=== PATIENT | male | born 1955 | race Caucasian/White ===

== ENCOUNTER → 2016-10-24 | Day surgery (SDC) | payer OTHER ==
[~2016-10-24] MED LIST: BUPIVACAINE HCL PF 0.75% 30 ML VIAL ONE; EPINEPHrine HCL (1:1000) 30 MG/30 ML VIAL ONE; LACTATED RINGER'S 1000 ML INJ 1,000 ML ONE; LIDOCAINE 1.5%/EPINEPHrine 1:200,000 PF SOLN 30 ML AMP ONE; MIDAZOLAM HCL 2 MG/2 ML VIAL ONE; MIDAZOLAM HCL 5 MG/ML VIAL (1 ML) ONE; ONDANSETRON HCL 4 MG/2 ML VIAL IV PUSH ONE; PROPOFOL 500 MG/50 ML BTL IV ONE; ceFAZolin 2 GM PREMIX 50 ML ONE
--- NOTE | 2016-10-24 20:20 | MP ---
cc: ALEKSANDERLISA DATE OF SURGERY 10/24/16 PREOPERATIVE DIAGNOSIS Left shoulder very large rotator cuff tear with biceps tendon severe tendinosis and partial rupture and impingement syndrome. PROCEDURE 1. Left shoulder arthroscopic rotator cuff repair 2. Left shoulder arthroscopic long head biceps tenodesis 3. Left shoulder arthroscopic subacromial decompression. ANESTHESIA Interscalene block and general SURGEON Jah Lai MD HEAD OF STORE OPERATIONS SURGEON JAKUB Irizarry ESTIMATED BLOOD LOSS Minimum DRAINS None. SPECIMEN None. COMPLICATIONS None known. INDICATION Lisa Quintanilla is a 61-year-old male with a severe debilitating left shoulder very large rotator cuff tear with pain and weakness including pain coming down the anterior aspect of the shoulder. MRI scan shows significant abnormality. He now presents for arthroscopic surgery. The risk and benefits have thoroughly been reviewed. All of his questions have been answered. A detailed informed consent has been obtained. surgeon's assistant, Nacho Swan, is an advanced registered nurse practitioner and his skill set is medically necessary for the performance of the operation. PROCEDURE IN DETAIL The patient is given interscalene block in the preop holding area. He was brought to the operating room and placed under general anesthetic. The patient was placed in the lateral decubitus position with axillary roll in place. The left shoulder is prepped and draped in usual sterile fashion. IV antibiotics were given. Time-out was completed. Bony landmarks were drawn out about the shoulder. We used a three portal technique, posteriorly in the soft spot, laterally at the junction of the anterior middle third of the acromion and accessory anterior portal. A blunt trocar was used to introduce the cannula. The very large rotator cuff tear was noted with the rotator cuff pulled back to the level of the labrum involving the supraspinous. The articular surfaces showed minimal wear. There was some mild fraying of the posterior labrum, some mild fraying centrally within the glenoid, fraying along the superior labrum and along the biceps tendon. We proceeded to clean up the joint from within and obtained hemostasis with the use of electrocautery. The marked amount of retraction of the cuff tear led us to proceed with testing mobility for this position. The mobility of the cuff was significantly limited and, therefore, we proceeded with a capsular release and this significantly improved the mobilization. We proceeded to debride unstable fibers of the biceps tendon and found this to be a greater than 50% torn and, therefore, decision was made to perform a tenodesis. We came into the subacromial space and performed bursectomy, made our anterior accessory portal and debrided the bicipital groove. We then proceeded with placement of #2 FiberWire whip stitch in the biceps tendon and then released it from the superior labrum and then used the interference screw with the special screwdriver after drilling an 8 mm tunnel to tenodese the biceps at the superior aspect of the bicipital groove. We then assessed the tear and this seemed to be somewhat of a reverse L configuration of a tear and we had already performed the release of the capsular level and now we assessed and we did a partial interval slide posteriorly and then did a [id number] repair of the infraspinatus to the supraspinous. There was two inferior and superior leaflets of the infraspinatus. We then passed the biceps tenodesis sutures through the anterior leaflet and then passed several more sutures that were then used for a biocomposite anchor laterally. We had prepared the bone of the footprint of the supraspinous so that we had good solid tissue on a good bleeding bone. Then similarly we placed several more sutures in a horizontal mattress fashion and then placed our next suture and then placed our suture anchor and then additional sutures were placed and a third suture anchor placed. The overall stability was very good. We identified the anterior acromial spur and performed anterior acromionectomy. I took the shoulder through internal and external rotation. We had good mobilization and we had good hemostasis. We had performed our acromionectomy removing approximately 4 mm of bone in the anterior surface of the acromion. We then proceeded to remove the arthroscopic equipment, closed with absorbable suture. Steri-Strips on the skin. Sterile dressing applied. The patient was awaken and returned to the recovery room in stable condition. MD REBECCA Floyd/ /7:01 PM /8:08 PM
== END | disposition home or self-care (01) ==
LOC: ESDC 06:12
PROVIDERS: ATTEND Orthopaedic Surgery Sports Medicine
DX: M75.122 Complete rotator cuff tear or rupture of left shoulder, not specified as traumatic (principal); M75.42 Impingement syndrome of left shoulder; M75.22 Bicipital tendinitis, left shoulder
CPT/HCPCS: 01630; 01716; 01991; 29826; 29827; 29828; 64417; C1713; J0171; J0690; J2250; J2405; J7120

== ENCOUNTER 2016-12-16 15:09 | Emergency (ER) | payer OTHER ==
[~2016-12-16] VITALS: Ht 182.9 cm; Wt 109.7 kg
[2016-12-16] MEDS ORDERED: IOHEXOL 350 MG/ML 10 ML VIAL (for RAD DIAG) IVCONTRAST ONE (15:10)
[2016-12-16 15:16] VITALS: BP 169/103; PULSE 102; RESP 18; TEMP 98.7; O2SAT 99
[2016-12-16] MEDS ORDERED: LOSA100T PO (15:29)
[2016-12-16] MEDS ORDERED: AMLO5 PO (15:29)
[2016-12-16] MEDS ORDERED: SODIUM CHLORIDE 0.9% FLUSH 10 ML FLUSH IVF PRN (15:30)
--- NOTE | 2016-12-16 15:31 | PD ---
HPI Chief Complaint: Pain: Acute or Chronic Time Seen by Provider: 15:28 Travel History International Travel<30 days: No Contact w/Intl Traveler<30days: No Traveled to known affect area: No History of Present Illness HPI 61-year-old male patient with history of hypertension, had a rotator cuff surgery on the left side done a few weeks ago, slipped and fell in the shower last week on Friday and the next day started having anterior left chest wall pain that hurts with palpation. He states is currently a 5 out of 10. He denies any shortness of breath, coughing, fevers, or any other symptoms. He went in to [place] urgent care today and was sent in for PE evaluation. He denies any recent long trips, denies any leg swelling or leg pain. Modifying Factors: None Associated Signs & Symptoms: Left-sided chest wall pain after a slip and fall Risk Factors: None PFSH Social History Tobacco Use: No Allergies-Medications (Allergen,Severity, Reaction): Coded Allergies: No Known Allergies (Unverified , 12/16/16) Reported Meds & Prescriptions Reported Meds & Active Scripts Active Reported Norvasc (Amlodipine Besylate) 5 Mg Tab Unknown Dose PO DAILY Losartan (Losartan Potassium) 100 Mg Tab 100 Mg PO DAILY Review of Systems Except as stated in HPI: all other systems reviewed are Neg Physical Exam Narrative GENERAL: Well-developed elderly white male patient currently in mild distress. Awake and oriented 3. SKIN: Focused skin assessment warm/dry. HEAD: Atraumatic. Normocephalic. EYES: Pupils equal and round. No scleral icterus. No injection or drainage. ENT: No nasal bleeding or discharge. Mucous membranes pink and moist. NECK: Trachea midline. No JVD. CARDIOVASCULAR: Regular rate and rhythm. No murmur appreciated. RESPIRATORY: No accessory muscle use. Clear to auscultation. Breath sounds equal bilaterally. CHEST: Tender to palpation of the left anterior chest wall at around the midclavicular line of the second and third rib without deformity or crepitance. No retractions or use of accessory muscles. GASTROINTESTINAL: Abdomen soft, non-tender, nondistended. Hepatic and splenic margins not palpable. MUSCULOSKELETAL: No obvious deformities. No clubbing. No cyanosis. No edema. NEUROLOGICAL: Awake and alert. No obvious cranial nerve deficits. Motor grossly within normal limits. Normal speech. PSYCHIATRIC: Appropriate mood and affect; insight and judgment normal. Data Data Last Documented VS Vital Signs Date Time Temp Pulse Resp B/P (MAP) Pulse Ox O2 Delivery O2 Flow Rate FiO2 12/16/16 16:31 90 18 163/92 (115) 98 Room Air 12/16/16 15:16 98.7 Orders Orders Electrocardiogram (12/16/16 15:28) Ckmb (Isoenzyme) Profile (12/16/16 15:28) Complete Blood Count With Diff (12/16/16 15:28) Comprehensive Metabolic Panel (12/16/16 15:28) D-Dimer (12/16/16 15:28) Magnesium (Mg) (12/16/16 15:28) Prothrombin Time / Inr (Pt) (12/16/16:28) Act Partial Throm Time (Ptt) (12/16/16 15:28) Troponin I (12/16/16 15:28) Ecg Monitoring (12/16/16 15:28) Bilateral Bp Monitoring (12/16/16:28) Iv Access Insert/Monitor (12/16/16 15:28) Oximetry (12/16/16 15:28) Oxygen Administration (12/16/16 15:28) Sodium Chloride 0.9% Flush (Ns Flush) (12/16/16 15:30) CKMB (12/16/16 15:45) CKMB% (12/16/16 15:45) Ct Pulmonary Angiogram (12/16/16 16:43) Iohexol 350 Inj (Omnipaque 350 Inj) (12/16/16 15:10) Labs Laboratory Tests Test 12/16/16 15:45 White Blood Count 5.5 TH/MM3 Red Blood Count 4.76 MIL/MM3 Hemoglobin 15.2 GM/DL Hematocrit 47.0 % Mean Corpuscular Volume 98.7 FL Mean Corpuscular Hemoglobin 32.0 PG Mean Corpuscular Hemoglobin Concent 32.4 % Red Cell Distribution Width 12.6 % Platelet Count 185 TH/MM3 Mean Platelet Volume 7.1 FL Neutrophils (%) (Auto) 69.5 % Lymphocytes (%) (Auto) 17.3 % Monocytes (%) (Auto) 11.0 % Eosinophils (%) (Auto) 1.6 % Basophils (%) (Auto) 0.6 % Neutrophils # (Auto) 3.8 TH/MM3 Lymphocytes # (Auto) 1.0 TH/MM3 Monocytes # (Auto) 0.6 TH/MM3 Eosinophils # (Auto) 0.1 TH/MM3 Basophils # (Auto) 0.0 TH/MM3 CBC Comment DIFF FINAL Differential Comment Prothrombin Time 10.3 SEC Prothromb Time International Ratio 0.9 RATIO Activated Partial Thromboplast Time 24.5 SEC D-Dimer Quantitative (PE/DVT) 5.90 MG/L FEU Blood Urea Nitrogen 12 MG/DL Creatinine 0.70 MG/DL Random Glucose 123 MG/DL Total Protein 8.0 GM/DL Albumin 3.9 GM/DL Calcium Level 8.9 MG/DL Magnesium Level 1.6 MG/DL Alkaline Phosphatase 67 U/L Aspartate Amino Transf (AST/SGOT) 61 U/L Alanine Aminotransferase (ALT/SGPT) 65 U/L Total Bilirubin 1.2 MG/DL Sodium Level 136 MEQ/L Potassium Level 3.3 MEQ/L Chloride Level 96 MEQ/L Carbon Dioxide Level 29.1 MEQ/L Anion Gap 11 MEQ/L Estimat Glomerular Filtration Rate 115 ML/MIN Total Creatine Kinase 142 U/L Creatine Kinase MB 1.0 NG/ML Troponin I LESS THAN 0.02 NG/ML MDM Medical Decision Making Medical Screen Exam Complete: Yes Emergency Medical Condition: Yes Medical Record Reviewed: Yes Interpretation(s) EKG shows NSR, no ST elevation or depression, and no arrhythmias. No significant T-wave inversions. Laboratory Tests Test 12/16/16 15:45 Monocytes (%) (Auto) 11.0 % (0.0-8.0) D-Dimer Quantitative (PE/DVT) 5.90 MG/L FEU (0.00-0.50) Random Glucose 123 MG/DL (74-106) Aspartate Amino Transf (AST/SGOT) 61 U/L (15-37) Total Bilirubin 1.2 MG/DL (0.2-1.0) Potassium Level 3.3 MEQ/L (3.5-5.1) Chloride Level 96 MEQ/L (98-107) Troponin I LESS THAN 0.02 NG/ML Differential Diagnosis Anterior chest wall pains: costochondritis versus contusion versus pneumonia versus pneumothorax versus PE Narrative Course Chest x-ray images were obtained at urgent care and it was negative for any obvious signs of acute pulmonary processes such as pneumothorax. Lab work and EKG done in the ER was unremarkable except for very elevated d-dimer. CTA did not show any signs of PE. At this point, I suspect that the symptoms are secondary to a chest wall contusion rather than other acute processes. My plan would be to release him with symptomatic relief or pain and follow-up to primary care doctor. Return for worsening in symptoms as needed. The plan has been discussed with him and he states understanding. Diagnosis Primary Impression: Chest wall contusion Med/Other Pt SpecificInfo: Prescription(s) given Scripts Tramadol-Acetaminophen (Tramadol-Acetaminophen) 37.5-325 mg Tab 1 TAB PO Q6H Y for PAIN, #15 TAB 0 Refills Prov: Lang Carver MD 12/16/16 Disposition: 01 DISCHARGE HOME Condition: Stable Lang Carver MD Dec 16, 2016 15:31
[2016-12-16 15:52] VITALS: RESP 18; O2SAT 99
[2016-12-16 15:54] LABS: AUTOMATED NEUTROPHIL # 3.8 TH/MM3 (1.8-7.7); BASOPHIL % 0.6 % (0.0-2.0); EOSINOPHIL # 0.1 TH/MM3 (0-0.4); EOSINOPHIL % 1.6 % (0.0-4.0); HEMO FLAGS DIFF FINAL; LYMPH % 17.3 % (9.0-44.0); MEAN CELL VOLUME 98.7 FL (80.0-100.0); MEAN CORPUSCULAR HGB CONC 32.4 % (32.0-36.0); NEUT % 69.5 % (16.0-70.0); PLATELET COUNT 185 TH/MM3 (150-450); RED BLOOD COUNT 4.76 MIL/MM3 (4.50-5.90); RED CELL DISTRIBUTION WIDTH 12.6 % (11.6-17.2); WHITE BLOOD COUNT 5.5 TH/MM3 (4.0-11.0)
[2016-12-16 16:07] LABS: CHLORIDE 96 MEQ/L (98-107); POTASSIUM 3.3 MEQ/L (3.5-5.1); SODIUM (NA) 136 MEQ/L (136-145)
[2016-12-16 16:11] LABS: ANION GAP 11 MEQ/L (5-15); BICARBONATE 29.1 MEQ/L (21.0-32.0); BLOOD UREA NITROGEN 12 MG/DL (7-18); MAGNESIUM 1.6 MG/DL (1.5-2.5)
[2016-12-16 16:13] LABS: ALT (GPT) 65 U/L (12-78)
[2016-12-16 16:14] LABS: AST (GOT) 61 U/L (15-37); GLOMERULAR FILTRATION RATE 115 ML/MIN (>89)
[2016-12-16 16:15] LABS: TOTAL BILIRUBIN ADULT 1.2 MG/DL (0.2-1.0)
[2016-12-16 16:16] LABS: ALKALINE PHOSPHATASE 67 U/L (45-117); CREATINE KINASE 142 U/L (39-308)
[2016-12-16 16:27] LABS: APTT (PATIENT) 24.5 SEC (24.3-30.1); INTERNATIONAL NORMALIZED RATIO 0.9 RATIO; PROTHROMBIN TIME - PATIENT 10.3 SEC (9.8-11.6)
[2016-12-16 16:31] VITALS: BP 163/92; PULSE 90; RESP 18; O2SAT 98
--- NOTE | 2016-12-16 17:43 | RADRPT ---
EXAM DATE/TIME: 12/16/2016 17:25 [facility] COMPARISON: No previous studies available for comparison. INDICATIONS : Left sided chest pain for two days. IV CONTRAST: 71 cc Omnipaque 350 (iohexol) IV RADIATION DOSE: 21.69 CTDIvol (mGy) ; Patient body habitus MEDICAL HISTORY : Hypertension. SURGICAL HISTORY : left rotator cuff surgery ENCOUNTER: Initial ACUITY: 2 days PAIN SCALE: 5/10 LOCATION: Left chest TECHNIQUE: Volumetric scanning of the chest was performed using a pulmonary embolism protocol MIP images were re constructed. Using automated exposure control and adjustment of the mA and/or kV according to patien t size, radiation dose was kept as low as reasonably achievable to obtain optimal diagnostic quality images. DICOM format image data is available electronically for review and comparison. Follow-up recommendations for detected pulmonary nodules are based at a minimum on nodule size and pa tient risk factors according to Fleischner Society Guidelines. FINDINGS: LUNGS: The lungs are clear. There is no pleural effusion. MEDIASTINUM: There is good visualization of the great vessels of the middle mediastinum. No evidence of mediastin al or hilar adenopathy/mass. There is no pericardial effusion. AXILLA: There is no axillary adenopathy MUSCULOSKELETAL: Moderate degenerative changes are present in the thoracic spine. MISCELLANEOUS: There is marked fatty replacement to the liver. CONCLUSION: Negative for central pulmonary emboli. Florencio Singleton MD FACR on December 16, 2016 at 17:39 Board Certified Radiologist. This report was verified electronically.
[2016-12-16] MEDS ORDERED: TRAM-388 PO (17:49)
[2016-12-16 17:50] VITALS: BP 151/91; PULSE 94; RESP 18; O2SAT 99
--- NOTE | 2016-12-17 13:50 | EKG ---
Date Performed: 12/16/2016 Time Performed: 15:37:26 PTAGE: 61 years EKG: Sinus rhythm NORMAL ECG Compared to prior tracing no significant change PREVIOUS TRACING : 06/12/2004 16.06 DOCTOR: Chepe Palumbo Interpretating Date/Time 12/17/2016 13:47:15
== END 2016-12-16 17:59 | disposition home or self-care (01) ==
LOC: PHED 15:09
DX: S20.212A Contusion of left front wall of thorax, initial encounter (principal); I10 Essential (primary) hypertension; Z98.890 Other specified postprocedural states; Z79.899 Other long term (current) drug therapy; W18.2XXA Fall in (into) shower or empty bathtub, initial encounter
CPT/HCPCS: 71275; 80053; 82550; 82552; 83735; 84484; 85025; 85379; 85610; 85730; 93005; 99285; Q9967

== ENCOUNTER 2016-12-25 16:17 | Inpatient (IN) | payer OTHER, MEDICARE ==
[~2016-12-25] VITALS: Ht 182.9 cm; Wt 113.0 kg
[~2016-12-25 16:17] MED LIST changes: +AMLO5 PO; -BUPIVACAINE HCL PF 0.75% 30 ML VIAL ONE; -EPINEPHrine HCL (1:1000) 30 MG/30 ML VIAL ONE; -LACTATED RINGER'S 1000 ML INJ 1,000 ML ONE; -LIDOCAINE 1.5%/EPINEPHrine 1:200,000 PF SOLN 30 ML AMP ONE; +LOSA100T PO; -MIDAZOLAM HCL 2 MG/2 ML VIAL ONE; -MIDAZOLAM HCL 5 MG/ML VIAL (1 ML) ONE; -ONDANSETRON HCL 4 MG/2 ML VIAL IV PUSH ONE; -PROPOFOL 500 MG/50 ML BTL IV ONE; +TRAM-388 PO; -ceFAZolin 2 GM PREMIX 50 ML ONE
[2016-12-25] MEDS ORDERED: IOHEXOL 350 MG/ML 10 ML VIAL (for RAD DIAG) IVCONTRAST ONE (16:18)
[2016-12-25 16:21] VITALS: BP 132/85; PULSE 94; RESP 24; TEMP 98.6; O2SAT 97
[2016-12-25] MEDS ORDERED: SODIUM CHLORIDE 0.9% FLUSH 10 ML FLUSH IVF PRN (16:45)
[2016-12-25] MEDS ORDERED: SODIUM CHLOR 0.9% 1000 ML INJ 1,000 ML IV ONE (16:45)
--- NOTE | 2016-12-25 16:47 | PD ---
HPI Chief Complaint: Exposure to Blood/Body Fluids Time Seen by Provider: 16:40 Travel History International Travel<30 days: No Contact w/Intl Traveler<30days: No Traveled to known affect area: No History of Present Illness HPI 61-year-old male with history of hypertension, presents to the emergency department for evaluation following a near syncopal episode. Patient states that he was in his home when he started to smell something different. He went outside and continue to smell this. At that time he became diaphoretic and lightheaded. He felt like he was going to pass out. He states since that incident he "just feels awful." He feels weak and shaky. Denies any chest pain or tightness. He denies any shortness of breath. He felt nauseous but he did not vomit. Denies any other focal deficits or weakness. Patient states he has not had anything happen like this in the past. Of note, patient travels frequently, last flight being yesterday, from [place]. He does consume alcohol daily for many years. Per his daughter he has had "extreme alcoholic" and she feels as though his drinking has become less controlled as of late. Patient states he does have "a few drinks a day around happy hour." His last alcoholic beverage was last evening on his flight home. PFSH Past Medical History Hypertension: Yes Tetanus Vaccination: Unknown Past Surgical History Abdominal Surgery: Yes (HERNIA REPAIR) Social History Alcohol Use: Yes (daily) Tobacco Use: No Substance Use: No Allergies-Medications (Allergen,Severity, Reaction): Coded Allergies: No Known Allergies (Unverified , 12/25/16) Reported Meds & Prescriptions Reported Meds & Active Scripts Active Tramadol-Acetaminophen 37.5-325 mg Tab 1 Tab PO Q6H PRN Reported Norvasc (Amlodipine Besylate) 5 Mg Tab Unknown Dose PO DAILY Losartan (Losartan Potassium) 100 Mg Tab 100 Mg PO DAILY Review of Systems Except as stated in HPI: all other systems reviewed are Neg Physical Exam Narrative GENERAL: Well-nourished male patient, tremulous but without any obvious distress SKIN: Focused skin assessment warm/diaphoretic. HEAD: Atraumatic. Normocephalic. EYES: Pupils equal and round. No scleral icterus. No injection or drainage. ENT: No nasal bleeding or discharge. Mucous membranes pink and moist. NECK: Trachea midline. No JVD. CARDIOVASCULAR: Tachycardic rate and rhythm. No murmur appreciated. RESPIRATORY: No accessory muscle use. Clear to auscultation. Breath sounds equal bilaterally. GASTROINTESTINAL: Abdomen soft, non-tender, nondistended. Hepatic and splenic margins not palpable. MUSCULOSKELETAL: No obvious deformities. No clubbing. No cyanosis. No edema. NEUROLOGICAL: Awake and alert. No obvious cranial nerve deficits. Motor grossly within normal limits. Normal speech. PSYCHIATRIC: Appropriate mood and affect; insight and judgment normal. Data Data Last Documented VS Vital Signs Date Time Temp Pulse Resp B/P (MAP) Pulse Ox O2 Delivery O2 Flow Rate FiO2 12/25/16 19:48 98 22 152/93 (112) 96 Nasal Cannula 12/25/16 16:51 98.7 Orders Orders Electrocardiogram (12/25/16 16:45) Basic Metabolic Panel (Bmp) (12/25/16 16:45) Complete Blood Count With Diff (12/25/16 16:45) Magnesium (Mg) (12/25/16 16:45) Ckmb (Isoenzyme) Profile (12/25/16 16:45) Troponin I (12/25/16 16:45) Act Partial Throm Time (Ptt) (12/25/16 16:45) Prothrombin Time / Inr (Pt) (12/25/16 16:45) Urinalysis - C+S If Indicated (12/25/16 16:45) Chest, Single Ap (12/25/16 16:45) Ecg Monitoring (12/25/16 16:45) Iv Access Insert/Monitor (12/25/16 16:45) Oximetry (12/25/16 16:45) Sodium Chloride 0.9% Flush (Ns Flush) (12/25/16 16:45) Sodium Chlor 0.9% 1000 Ml Inj (Ns 1000 M (12/25/16 16:45) Lorazepam Inj (Ativan Inj) (12/25/16 17:00) Ondansetron Inj (Zofran Inj) (12/25/16 17:30) CKMB (12/25/16 17:00) CKMB% (12/25/16 17:00) Ct Pulmonary Angiogram (12/25/16 ) Alcohol (Ethanol) (12/25/16 18:21) Prochlorperazine Inj (Compazine Inj) (12/25/16 18:30) Diphenhydramine Inj (Benadryl Inj) (12/25/16 18:30) Iohexol 350 Inj (Omnipaque 350 Inj) (12/25/16 16:18) Us Leg Venous Doppler Bilat (12/25/16 ) Enoxaparin Inj (Lovenox Inj) (12/25/16 19:15) Alcohol Withdrawal Asmt-Ciwa Q4HX18 (12/25/16 19:32) Flumazenil Inj (Romazicon Inj) (12/25/16 19:45) Lorazepam (Ativan) (12/25/16 19:45) Lorazepam Inj (Ativan Inj) (12/25/16 19:45) Lorazepam (Ativan) (12/25/16 19:45) Lorazepam Inj (Ativan Inj) (12/25/16 19:45) Lorazepam Inj (Ativan Inj) (12/25/16 19:45) Lorazepam Inj (Ativan Inj) (12/25/16 19:45) Labs Laboratory Tests Test 12/25/16 17:00 12/25/16 18:00 White Blood Count 7.5 TH/MM3 Red Blood Count 4.39 MIL/MM3 Hemoglobin 15.1 GM/DL Hematocrit 44.6 % Mean Corpuscular Volume 101.5 FL Mean Corpuscular Hemoglobin 34.4 PG Mean Corpuscular Hemoglobin Concent 33.9 % Red Cell Distribution Width 13.1 % Platelet Count 180 TH/MM3 Mean Platelet Volume 7.2 FL Neutrophils (%) (Auto) 82.0 % Lymphocytes (%) (Auto) 7.6 % Monocytes (%) (Auto) 9.6 % Eosinophils (%) (Auto) 0.3 % Basophils (%) (Auto) 0.5 % Neutrophils # (Auto) 6.1 TH/MM3 Lymphocytes # (Auto) 0.6 TH/MM3 Monocytes # (Auto) 0.7 TH/MM3 Eosinophils # (Auto) 0.0 TH/MM3 Basophils # (Auto) 0.0 TH/MM3 CBC Comment DIFF FINAL Differential Comment Prothrombin Time 10.7 SEC Prothromb Time International Ratio 1.0 RATIO Activated Partial Thromboplast Time 23.8 SEC Blood Urea Nitrogen 12 MG/DL Creatinine 0.73 MG/DL Random Glucose 192 MG/DL Calcium Level 8.3 MG/DL Magnesium Level 1.5 MG/DL Sodium Level 134 MEQ/L Potassium Level 3.3 MEQ/L Chloride Level 95 MEQ/L Carbon Dioxide Level 29.7 MEQ/L Anion Gap 9 MEQ/L Estimat Glomerular Filtration Rate 110 ML/MIN Total Creatine Kinase 120 U/L Creatine Kinase MB 1.2 NG/ML Troponin I LESS THAN 0.02 NG/ML Ethyl Alcohol Level LESS THAN 3 MG/DL Urine Color YELLOW Urine Turbidity CLEAR Urine pH 6.5 Urine Specific [place] 1.010 Urine Protein NEG mg/dL Urine Glucose (UA) 150 mg/dL Urine Ketones 10 mg/dL Urine Occult Blood NEG Urine Nitrite NEG Urine Bilirubin NEG Urine Urobilinogen LESS THAN 2.0 MG/DL Urine Leukocyte Esterase NEG Urine RBC 1 /hpf Urine WBC LESS THAN 1 /hpf Urine Bacteria RARE /hpf Microscopic Urinalysis Comment CULT NOT INDICATED MDM Medical Decision Making Medical Screen Exam Complete: Yes Emergency Medical Condition: Yes Medical Record Reviewed: Yes Differential Diagnosis The pain versus near syncope versus Electrolyte abnormality versus viral syndrome versus arrhythmia versus alcohol withdrawal Narrative Course 61-year-old male presents to emergency department for evaluation following a near syncopal episode. Patient appears without distress. He is diaphoretic with warm skin. States he does not feel well. He is without any respiratory distress. Lab work is initiated. EKGs reviewed by my attending physician without any acute ectopy, ST elevation or depression. My concern is that the patient is tremulous secondary to alcohol withdrawal with his last alcoholic beverage being yesterday. In addition to IV fluid, he is given Ativan IV. While lying in bed, patient's oxygen saturation continues to get decrease as low as 84% on room air. He is placed on oxygen and is able to maintain oxygen saturation greater than 95%. After oxygen saturations remained consistent, we attempted room air again. The patient maintained oxygen saturations >95% for a approximately 10 minutes then decreased again to 88% and was placed on 2LNC. I discussed the patient my attending physician Dr. Loyd and with the persistent tachycardia and inability to maintain oxygen saturations, we will movem forward with with CT pulmonary angiogram. 1830 I spoke with the patient's daughter who is a nurse practitioner in [place]. She again verbalizes concern about her father's alcoholism and how it may be contributing to his current symptoms. Laboratory Tests Test 12/25/16 17:00 12/25/16 18:00 White Blood Count 7.5 TH/MM3 Red Blood Count 4.39 MIL/MM3 Hemoglobin 15.1 GM/DL Hematocrit 44.6 % Mean Corpuscular Volume 101.5 FL Mean Corpuscular Hemoglobin 34.4 PG Mean Corpuscular Hemoglobin Concent 33.9 % Red Cell Distribution Width 13.1 % Platelet Count 180 TH/MM3 Mean Platelet Volume 7.2 FL Neutrophils (%) (Auto) 82.0 % Lymphocytes (%) (Auto) 7.6 % Monocytes (%) (Auto) 9.6 % Eosinophils (%) (Auto) 0.3 % Basophils (%) (Auto) 0.5 % Neutrophils # (Auto) 6.1 TH/MM3 Lymphocytes # (Auto) 0.6 TH/MM3 Monocytes # (Auto) 0.7 TH/MM3 Eosinophils # (Auto) 0.0 TH/MM3 Basophils # (Auto) 0.0 TH/MM3 CBC Comment DIFF FINAL Differential Comment Prothrombin Time 10.7 SEC Prothromb Time International Ratio 1.0 RATIO Activated Partial Thromboplast Time 23.8 SEC Blood Urea Nitrogen 12 MG/DL Creatinine 0.73 MG/DL Random Glucose 192 MG/DL Calcium Level 8.3 MG/DL Magnesium Level 1.5 MG/DL Sodium Level 134 MEQ/L Potassium Level 3.3 MEQ/L Chloride Level 95 MEQ/L Carbon Dioxide Level 29.7 MEQ/L Anion Gap 9 MEQ/L Estimat Glomerular Filtration Rate 110 ML/MIN Total Creatine Kinase 120 U/L Creatine Kinase MB 1.2 NG/ML Troponin I LESS THAN 0.02 NG/ML Ethyl Alcohol Level LESS THAN 3 MG/DL Urine Color YELLOW Urine Turbidity CLEAR Urine pH 6.5 Urine Specific [place] 1.010 Urine Protein NEG mg/dL Urine Glucose (UA) 150 mg/dL Urine Ketones 10 mg/dL Urine Occult Blood NEG Urine Nitrite NEG Urine Bilirubin NEG Urine Urobilinogen LESS THAN 2.0 MG/DL Urine Leukocyte Esterase NEG Urine RBC 1 /hpf Urine WBC LESS THAN 1 /hpf Urine Bacteria RARE /hpf Microscopic Urinalysis Comment CULT NOT INDICATED CBC is without acute concern. BMP is with mild hypokalemia 3.3. Glucose is 192. Troponin is less than 0.02. EtOH is less than 3. INR is 1.0. Urinalysis is that the 150 glucose, 10 ketones, rare bacteria. Culture is not indicated. Last Impressions Chest X-Ray 12/25/16 1645 Signed Impressions: Service Date/Time: Sunday, December 25, 2016 17:10 - CONCLUSION: No acute disease. Florencio Singleton MD FACR CT Angiography 12/25/16 0000 Signed Impressions: Service Date/Time: Sunday, December 25, 2016 18:34 - CONCLUSION: 1. Small right lower lobe pulmonary emboli. 2. Clear lungs. 3. Coronary artery calcification. 4. Fatty liver. Jaskaran Armstrong MD I discussed the findings of my attending physician who has also reviewed them. I have reviewed the findings with the patient and his family. I have discussed the risks of anticoagulation therapy. Patient and his family verbalize understanding. Patient will be given a dose of Lovenox here in the emergency department. Pt will be admitted observation for further evaluation fo his near syncope; ultrasound of the bilateral lower extremities has been ordered for possible source of patient's emboli. Pt's primary care provider is Dr. Carrizales Diagnosis Primary Impression: Near syncope Additional Impressions: Pulmonary emboli Qualified Codes: I26.99 - Other pulmonary embolism without acute cor pulmonale Alcohol dependence Qualified Codes: F10.29 - Alcohol dependence with unspecified alcohol-induced disorder Admitting Information Admitting Physician Requests: Admit Condition: Stable MembrenoPaula camejo JAKUB Dec 25, 2016 16:47
[2016-12-25 16:51] VITALS: BP 137/90; PULSE 107; RESP 19; TEMP 98.7; O2SAT 96
[2016-12-25] MEDS ORDERED: LORazepam 2 MG/ML VIAL IV PUSH ONE (17:00)
[2016-12-25 17:21] LABS: AUTOMATED NEUTROPHIL # 6.1 TH/MM3 (1.8-7.7); BASOPHIL % 0.5 % (0.0-2.0); EOSINOPHIL % 0.3 % (0.0-4.0); HEMATOCRIT 44.6 % (39.0-51.0); HEMO FLAGS DIFF FINAL; LYMPH % 7.6 % (9.0-44.0); LYMPHOCYTE # 0.6 TH/MM3 (1.0-4.8); MEAN CELL VOLUME 101.5 FL (80.0-100.0); MEAN CORPUSCULAR HEMOGLOBIN 34.4 PG (27.0-34.0); MEAN CORPUSCULAR HGB CONC 33.9 % (32.0-36.0); MONO % 9.6 % (0.0-8.0); PLATELET COUNT 180 TH/MM3 (150-450); RED BLOOD COUNT 4.39 MIL/MM3 (4.50-5.90); RED CELL DISTRIBUTION WIDTH 13.1 % (11.6-17.2); WHITE BLOOD COUNT 7.5 TH/MM3 (4.0-11.0)
--- NOTE | 2016-12-25 17:29 | RADRPT ---
EXAM DATE/TIME: 12/25/2016 17:10 [facility] COMPARISON: No previous studies available for comparison. INDICATIONS : Nausea and faint feeling after smelling a strange odor. MEDICAL HISTORY : Hypertension. SURGICAL HISTORY : Left rotator cuff surgery. ENCOUNTER: Initial ACUITY: 1 day PAIN SCORE: 0/10 LOCATION: Bilateral chest FINDINGS: A single view of the chest demonstrates the lungs to be symmetrically aerated without evidence of mas s, infiltrate or effusion. The cardiomediastinal contours are unremarkable. Osseous structures are intact. CONCLUSION: No acute disease. Florencio Singleton MD FACR on December 25, 2016 at 17:27 Board Certified Radiologist. This report was verified electronically.
[2016-12-25] MEDS ORDERED: ONDANSETRON HCL 4 MG/2 ML VIAL IV PUSH ONE (17:30)
[2016-12-25 17:31] LABS: APTT (PATIENT) 23.8 SEC (24.3-30.1); PROTHROMBIN TIME - PATIENT 10.7 SEC (9.8-11.6)
[2016-12-25 17:54] LABS: ANION GAP 9 MEQ/L (5-15); BICARBONATE 29.7 MEQ/L (21.0-32.0); BLOOD UREA NITROGEN 12 MG/DL (7-18); CHLORIDE 95 MEQ/L (98-107); GLOMERULAR FILTRATION RATE 110 ML/MIN (>89); MAGNESIUM 1.5 MG/DL (1.5-2.5); POTASSIUM 3.3 MEQ/L (3.5-5.1); SODIUM (NA) 134 MEQ/L (136-145)
[2016-12-25 17:56] LABS: CREATINE KINASE 120 U/L (39-308)
[2016-12-25 18:08] LABS: CKMB 1.2 NG/ML (0.5-3.6)
[2016-12-25 18:23] LABS: BACTERIA, URINE RARE /hpf; BLOOD, URINE NEG (NEG); COMMENT (UR) CULT NOT INDICATED; CULTURE IF INDICATED CULT NOT INDICATED; GLUCOSE,URINE 150 mg/dL (NEG); KETONE, URINE 10 mg/dL (NEG); NITRITE,URINE NEG (NEG); PH, URINE 6.5 (5.0-8.5); URINE COLOR YELLOW (YELLW/STRAW)
[2016-12-25] MEDS ORDERED: diphenhydrAMINE HCL 50 MG/ML VIAL IV PUSH ONE (18:30)
[2016-12-25] MEDS ORDERED: PROCHLORPERAZINE INJ 10 MG/2 ML VIAL IV PUSH ONE (18:30)
--- NOTE | 2016-12-25 18:59 | RADRPT ---
EXAM DATE/TIME: 12/25/2016 18:34 [facility] COMPARISON: CT PULMONARY ANGIOGRAM, December 16, 2016, 17:25. INDICATIONS : Short of breath. IV CONTRAST: 75 cc Omnipaque 350 (iohexol) IV RADIATION DOSE: 23.21 CTDIvol (mGy) MEDICAL HISTORY : Hypertension. SURGICAL HISTORY : hernia repair ENCOUNTER: Initial ACUITY: 1 day PAIN SCALE: 3/10 LOCATION: chest TECHNIQUE: Volumetric scanning of the chest was performed using a pulmonary embolism protocol MIP images were re constructed. Using automated exposure control and adjustment of the mA and/or kV according to patien t size, radiation dose was kept as low as reasonably achievable to obtain optimal diagnostic quality images. DICOM format image data is available electronically for review and comparison. Follow-up recommendations for detected pulmonary nodules are based at a minimum on nodule size and pa tient risk factors according to Fleischner Society Guidelines. FINDINGS: PULMONARY ARTERIES: Several small, scattered pulmonary emboli are seen in the right lower lobe. No large or other pulmona ry embolus is seen. LUNGS: There is no consolidation or pneumothorax . No concerning pulmonary nodule is visualized. PLEURAE: There is no pleural thickening or pleural effusion. MEDIASTINUM: There is good visualization of the great vessels of the middle mediastinum. No evidence of mediastin al or hilar adenopathy/mass. Heart size normal. There is a right and left-sided coronary artery calci fication. MUSCULOSKELETAL: Within normal limits for patient age. MISCELLANEOUS: Severe fatty infiltration noted of the liver. CONCLUSION: 1. Small right lower lobe pulmonary emboli. 2. Clear lungs. 3. Coronary artery calcification. 4. Fatty liver. Jaskaran Armstrong MD on December 25, 2016 at 18:55 Board Certified Radiologist. This report was verified electronically.
[2016-12-25] MEDS ORDERED: ENOXAPARIN SODIUM 120 MG/0.8 ML SYRINGE SQ ONE (19:15)
[2016-12-25] MEDS ORDERED: LORazepam 2 MG/ML VIAL IV PUSH PRN ×4 (19:45→21:30)
[2016-12-25] MEDS ORDERED: LORazepam 1 MG TAB PO PRN (19:45)
[2016-12-25] MEDS ORDERED: FLUMAZENIL 0.5 MG/5 ML VIAL IV PUSH PRN (19:45)
[2016-12-25] MEDS ORDERED: LORazepam 2 MG TAB PO PRN (19:45)
--- NOTE | 2016-12-25 19:47 | PD ---
Physical Exam Narrative I, Dr. Loyd, have reviewed the advance practice practitioner's documentation and am in agreement, met with the patient face to face, made the diagnosis, and the medical decision making was done by me. *My assessment and Findings: Near syncope vs. arrhythmia vs. dehydration 61yo M with HTN here with episode of lightheaded today after smelling something. States he did not pass out but was diaphoretic. Denies any chest pain or sob. However, pt was found to be hypoxic in the 80s on room air and does not use oxygen at home. Pt does have recent traveling. Saturating at 98% on 2L NC. Labs reviewed, no leukocytosis. K: 3.3, pt tolerating PO. Troponin negative. CT angio showed small right lower lobe PE. Pt given lovenox. Will admit for syncope work up and new onset PE. Data Data Last Documented VS Vital Signs Date Time Temp Pulse Resp B/P (MAP) Pulse Ox O2 Delivery O2 Flow Rate FiO2 12/25/16 19:48 98 22 152/93 (112) 96 Nasal Cannula 12/25/16 16:51 98.7 Orders Orders Electrocardiogram (12/25/16 16:45) Basic Metabolic Panel (Bmp) (12/25/16 16:45) Complete Blood Count With Diff (12/25/16 16:45) Magnesium (Mg) (12/25/16 16:45) Ckmb (Isoenzyme) Profile (12/25/16 16:45) Troponin I (12/25/16 16:45) Act Partial Throm Time (Ptt) (12/25/16 16:45) Prothrombin Time / Inr (Pt) (12/25/16 16:45) Urinalysis - C+S If Indicated (12/25/16 16:45) Chest, Single Ap (12/25/16 16:45) Ecg Monitoring (12/25/16 16:45) Iv Access Insert/Monitor (12/25/16 16:45) Oximetry (12/25/16 16:45) Sodium Chloride 0.9% Flush (Ns Flush) (12/25/16 16:45) Sodium Chlor 0.9% 1000 Ml Inj (Ns 1000 M (12/25/16 16:45) Lorazepam Inj (Ativan Inj) (12/25/16 17:00) Ondansetron Inj (Zofran Inj) (12/25/16 17:30) CKMB (12/25/16 17:00) CKMB% (12/25/16 17:00) Ct Pulmonary Angiogram (12/25/16 ) Alcohol (Ethanol) (12/25/16 18:21) Prochlorperazine Inj (Compazine Inj) (12/25/16 18:30) Diphenhydramine Inj (Benadryl Inj) (12/25/16 18:30) Iohexol 350 Inj (Omnipaque 350 Inj) (12/25/16 16:18) Us Leg Venous Doppler Bilat (12/25/16 ) Enoxaparin Inj (Lovenox Inj) (12/25/16 19:15) Alcohol Withdrawal Asmt-Ciwa Q4HX18 (12/25/16 19:32) Flumazenil Inj (Romazicon Inj) (12/25/16 19:45) Lorazepam (Ativan) (12/25/16 19:45) Lorazepam Inj (Ativan Inj) (12/25/16 19:45) Lorazepam (Ativan) (12/25/16 19:45) Lorazepam Inj (Ativan Inj) (12/25/16 19:45) Lorazepam Inj (Ativan Inj) (12/25/16 19:45) Lorazepam Inj (Ativan Inj) (12/25/16 19:45) Admit Order (Ed Use Only) (12/25/16 20:02) Labs Laboratory Tests Test 12/25/16 17:00 12/25/16 18:00 White Blood Count 7.5 TH/MM3 Red Blood Count 4.39 MIL/MM3 Hemoglobin 15.1 GM/DL Hematocrit 44.6 % Mean Corpuscular Volume 101.5 FL Mean Corpuscular Hemoglobin 34.4 PG Mean Corpuscular Hemoglobin Concent 33.9 % Red Cell Distribution Width 13.1 % Platelet Count 180 TH/MM3 Mean Platelet Volume 7.2 FL Neutrophils (%) (Auto) 82.0 % Lymphocytes (%) (Auto) 7.6 % Monocytes (%) (Auto) 9.6 % Eosinophils (%) (Auto) 0.3 % Basophils (%) (Auto) 0.5 % Neutrophils # (Auto) 6.1 TH/MM3 Lymphocytes # (Auto) 0.6 TH/MM3 Monocytes # (Auto) 0.7 TH/MM3 Eosinophils # (Auto) 0.0 TH/MM3 Basophils # (Auto) 0.0 TH/MM3 CBC Comment DIFF FINAL Differential Comment Prothrombin Time 10.7 SEC Prothromb Time International Ratio 1.0 RATIO Activated Partial Thromboplast Time 23.8 SEC Blood Urea Nitrogen 12 MG/DL Creatinine 0.73 MG/DL Random Glucose 192 MG/DL Calcium Level 8.3 MG/DL Magnesium Level 1.5 MG/DL Sodium Level 134 MEQ/L Potassium Level 3.3 MEQ/L Chloride Level 95 MEQ/L Carbon Dioxide Level 29.7 MEQ/L Anion Gap 9 MEQ/L Estimat Glomerular Filtration Rate 110 ML/MIN Total Creatine Kinase 120 U/L Creatine Kinase MB 1.2 NG/ML Troponin I LESS THAN 0.02 NG/ML Ethyl Alcohol Level LESS THAN 3 MG/DL Urine Color YELLOW Urine Turbidity CLEAR Urine pH 6.[address] 1.010 Urine Protein NEG mg/dL Urine Glucose (UA) 150 mg/dL Urine Ketones 10 mg/dL Urine Occult Blood NEG Urine Nitrite NEG Urine Bilirubin NEG Urine Urobilinogen LESS THAN 2.0 MG/DL Urine Leukocyte Esterase NEG Urine RBC 1 /hpf Urine WBC LESS THAN 1 /hpf Urine Bacteria RARE /hpf Microscopic Urinalysis Comment CULT NOT INDICATED MDM Supervised Visit with YESENIA: Yes Interpretation(s) EKG: Sinus tachycardia at 104bpm. LAD. Mild ST depression diffusely. TWI III. Diagnosis Primary Impression: Near syncope Additional Impressions: Alcohol dependence Qualified Codes: F10.29 - Alcohol dependence with unspecified alcohol-induced disorder Pulmonary emboli Qualified Codes: I26.99 - Other pulmonary embolism without acute cor pulmonale Admitting Information Admitting Physician Requests: Observation Condition: Stable Yajaira Loyd Dec 25, 2016 19:47
[2016-12-25 19:48] VITALS: BP 152/93; PULSE 98; RESP 22; O2SAT 96
--- NOTE | 2016-12-25 20:27 | RADRPT ---
EXAM DATE/TIME: 12/25/2016 19:47 [facility] COMPARISON: CT PULMONARY ANGIOGRAM, December 25, 2016, 18:34. INDICATIONS : Bilateral leg pain. MEDICAL HISTORY : Hypertension. SURGICAL HISTORY : Arthroscopy. Hernia repair. Bilateral hip replacement. Rotator cuff surgery. ENCOUNTER: Initial ACUITY: 1 day PAIN SCORE: 1/10 LOCATION: Bilateral legs. TECHNIQUE: Venous ultrasound of the left and right leg was performed from the inguinal ligament to the proximal calf. Real-time, color Doppler and spectral tracing, compression and augmentation techniques were us ed. FINDINGS: RIGHT LEG: There is normal compressibility of the deep venous system from the inguinal region to the proximal ca lf. No echogenic clot is seen in the lumen of the common femoral, femoral, popliteal, and posterior tibial veins. There is a normal response of the venous system to proximal and distal augmentation an d respiration. LEFT LEG: There is normal compressibility of the deep venous system from the inguinal region to the proximal ca lf. No echogenic clot is seen in the lumen of the common femoral, femoral, popliteal, and posterior tibial veins. There is a normal response of the venous system to proximal and distal augmentation an d respiration. CONCLUSION: No DVT of either lower extremity. Jaskaran Armstrong MD on December 25, 2016 at 20:25 Board Certified Radiologist. This report was verified electronically.
[2016-12-25] MEDS: LORazepam 2 MG/ML VIAL IV PUSH PRN (21:08)
[2016-12-25] MEDS ORDERED: SODIUM CHLORIDE 0.9% FLUSH 10 ML FLUSH IV FLUSH PRN (21:15)
[2016-12-25] MEDS ORDERED: NALOXONE HCL 0.4 MG/ML AMP IV PUSH PRN (21:15)
[2016-12-25] MEDS ORDERED: THIAMINE HCL 100 MG TAB PO ONE (21:30)
[2016-12-25] MEDS ORDERED: POTASSIUM CHLORIDE 20 MEQ CONTROLLED RELEASE TAB PO ONE (21:30)
--- NOTE | 2016-12-25 22:18 | RADRPT ---
EXAM DATE/TIME: 12/25/2016 21:36 [facility] COMPARISON: No previous studies available for comparison. INDICATIONS : Syncope. MEDICAL HISTORY : Hypertension. SURGICAL HISTORY : Arthroscopy. Hernia repair. Bilateral hip replacement. ENCOUNTER: Initial ACUITY: 1 day PAIN SCORE: 2/10 LOCATION: Bilateral neck PEAK SYSTOLIC VELOCITIES (cm/sec): ICA/CCA RATIO: Right: 1.4 Left: 1.6 ICA: Right: 97.7 Left: 120.2 CCA: Right: 69.9 Left: 77.2 ECA: Right: 166.6 Left: 155.4 VERTEBRAL: Right: 52.6 antegrade Left: 38.4 antegrade Elevated flow velocities and ICA/CCA ratios have been found to correlate with increased degrees of vessel stenosis, calculated as percentage of diameter relative to a normal segment of distal ICA/CCA FINDINGS: RIGHT CAROTID: Moderate plaque of the bulb and proximal internal carotid artery. 30% or less narrowing by cross-sect ion. Slight flow acceleration in the proximal ICA. LEFT CAROTID: Moderate plaque of the bulb and proximal internal carotid artery. 30% or less narrowing by cross-sect ion. Mild flow acceleration in the proximal ICA. VERTEBRAL ARTERIES: Antegrade flow is seen in both vertebral arteries. MISCELLANEOUS: None. CONCLUSION: Moderate atherosclerotic plaque seen of both carotid bifurcations without hemodynamically significant narrowing. Jaskaran Armstrong MD on December 25, 2016 at 22:15 Board Certified Radiologist. This report was verified electronically.
[2016-12-25 23:33] VITALS: BP 153/82; PULSE 98; RESP 20; TEMP 98.7; O2SAT 94
[2016-12-26 00:49] LABS: CREATINE KINASE 111 U/L (39-308)
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
[2016-12-26] MEDS ORDERED: TEMAZEPAM 15 MG CAP PO ONE (03:45)
[2016-12-26 05:07] LABS: ANION GAP 9 MEQ/L (5-15); BLOOD UREA NITROGEN 8 MG/DL (7-18); CHLORIDE 89 MEQ/L (98-107); GLOMERULAR FILTRATION RATE 121 ML/MIN (>89); POTASSIUM 3.7 MEQ/L (3.5-5.1); SODIUM (NA) 131 MEQ/L (136-145)
[2016-12-26 05:11] LABS: CREATINE KINASE 147 U/L (39-308)
[2016-12-26] MEDS ORDERED: traMADol/ACETAMINOPHEN 37.5/325 1 TAB PO PRN (05:15)
[2016-12-26] MEDS ORDERED: ENOXAPARIN SODIUM 120 MG/0.8 ML SYRINGE SQ SCH (07:00)
[2016-12-26] MEDS: THIAMINE HCL 100 MG TAB PO SCH (09:17)
[2016-12-26] MEDS: SODIUM CHLORIDE 0.9% FLUSH 10 ML FLUSH IV FLUSH SCH ×2 (09:17→20:56)
[2016-12-26] MEDS: amLODIPine BESYLATE 5 MG TAB PO SCH (09:17)
[2016-12-26] MEDS: LOSARTAN 50 MG TAB PO SCH (09:17)
[2016-12-26 09:46] VITALS: BP 133/72; PULSE 80; RESP 16; TEMP 98.1; O2SAT 98
--- NOTE | 2016-12-26 09:46 | HHI.PR ---
Subjective Remarks Follow-up PE. Patient reports generalized weakness. States that his legs feel "tired". Denies chest pain or dyspnea. He continues to report smelling a chemical odor, but less noticeable than yesterday at his home. Objective Vitals Vital Signs Date Time Temp Pulse Resp B/P (MAP) Pulse Ox O2 Delivery O2 Flow Rate FiO2 12/25/16 23:33 98.7 98 20 153/82 (105) 94 12/25/16 19:48 98 22 152/93 (112) 96 Nasal Cannula 12/25/16 16:51 98.7 107 19 137/90 (106) 96 Room Air 12/25/16 16:42 19 12/25/16 16:21 98.6 94 24 132/85 (101) 97 Room Air Result Diagram: 12/25/16 1700 12/26/16 0359 Imaging Last Impressions Chest X-Ray 12/25/16 1645 Signed Impressions: Service Date/Time: Sunday, December 25, 2016 17:10 - CONCLUSION: No acute disease. Florencio Singleton MD FACR Lower Extremity Ultrasound 12/25/16 0000 Signed Impressions: Service Date/Time: Sunday, December 25, 2016 19:47 - CONCLUSION: No DVT of either lower extremity. Jaskaran Armstrong MD Carotid Artery Ultrasound 12/25/16 0000 Signed Impressions: Service Date/Time: Sunday, December 25, 2016 21:36 - CONCLUSION: Moderate atherosclerotic plaque seen of both carotid bifurcations without hemodynamically significant narrowing. Jaskaran Armstrong MD CT Angiography 12/25/16 0000 Signed Impressions: Service Date/Time: Sunday, December 25, 2016 18:34 - CONCLUSION: 1. Small right lower lobe pulmonary emboli. 2. Clear lungs. 3. Coronary artery calcification. 4. Fatty liver. Jaskaran Armstrong MD Objective Remarks General: No acute distress. Heart: Regular rate and rhythm. No murmur. Lungs: Clear to auscultation bilaterally. No wheezes, rales, or rhonchi. Breathing is nonlabored. Abdomen: Soft, nontender, nondistended. Extremities: No lower extremity edema. Psych: Alert and oriented. Procedures None Urinary Catheter: No Vascular Central Line Catheter: No A/P Problem List: (1) Pulmonary emboli ICD Code: I26.99 - Other pulmonary embolism without acute cor pulmonale Status: Acute (2) Alcohol dependence ICD Code: F10.20 - Alcohol dependence, uncomplicated Status: Acute (3) Near syncope ICD Code: R55 - Syncope and collapse Status: Acute (4) Hypertension ICD Code: I10 - Essential (primary) hypertension Assessment and Plan 1. Pulmonary embolus: Patient had recent travel from [place]. CTA shows right lower lobe pulmonary embolus. No DVT noted on bilateral lower extremity ultrasound. Lovenox initiated in the ER. Will transition to Xarelto. 2. Near syncope: Likely secondary to pulmonary emboli. 2-D echocardiogram is pending. Carotid ultrasound shows moderate atherosclerotic plaque with no significant stenosis. 3. Hypertension: Chronic. Continue home medications. 4. Alcohol abuse/dependence: [facility] protocol. Thiamine, folate. Withdrawal/ seizure precautions. Patient has been counseled. 5. Generalized weakness, abnormal olfactory sensation: Check head CT. 6. DVT prophylaxis: Lovenox. Problem Qualifiers (1) Pulmonary emboli: Qualified Codes: I26.99 - Other pulmonary embolism without acute cor pulmonale (2) Alcohol dependence: Qualified Codes: F10.29 - Alcohol dependence with unspecified alcohol-induced disorder Shawn Peng MD Dec 26, 2016 09:46
[2016-12-26] MEDS ORDERED: ONDANSETRON HCL 4 MG/2 ML VIAL IV PUSH PRN (10:15)
--- NOTE | 2016-12-26 10:50 | ECHRPT ---
Indication: near syncope CONCLUSIONS Normal left ventricular size. Wall thickness is normal. The left ventricular systolic function is low normal with an estimated ejection fraction in the rang e of 50- 55%. The estimated pulmonary arterial pressure is 34 mmHg. The pulmonary valve is not well visualized. BP: 153 / 82 HR: 98 Rhythm: Sinus MEASUREMENTS (Male / Female) Normal Values Technical Quality:Good 2D ECHO LV Diastolic Diameter PLAX 4.8 cm 4.2 - 5.9 / 3.9 - 5.3 cm LV Systolic Diameter PLAX 3.6 cm IVS Diastolic Thickness 1.1 cm 0.6 - 1.0 / 0.6 - 0.9 cm LVPW Diastolic Thickness 0.7 cm 0.6 - 1.0 / 0.6 - 0.9 cm LV Relative Wall Thickness 0.4 LA Systolic Diameter LX 3.4 cm 3.0 - 4.0 / 2.7 - 3.8 cm M-MODE Aortic Root Diameter MM 3.8 cm AV Cusp Separation MM 2.3 cm DOPPLER Mitral E Point Velocity 86.9 cm/s Mitral A Point Velocity 101.0 cm/s Mitral E to A Ratio 0.9 TR Peak Velocity 270.0 cm/s TR Peak Gradient 29.2 mmHg FINDINGS LEFT VENTRICLE Normal left ventricular size. Wall thickness is normal. The left ventricular systolic function is low normal with an estimated ejection fraction in the rang e of 50- 55%. RIGHT VENTRICLE Normal right ventricular size and systolic function. LEFT ATRIUM The left atrial size is normal. RIGHT ATRIUM The right atrial size is normal. ATRIAL SEPTUM Normal atrial septal thickness without atrial level shunting by limited color doppler interrogation. AORTA The aortic root and proximal ascending aorta are normal in size on limited imaging. MITRAL VALVE Structurally normal mitral valve. No mitral valve stenosis or regurgitation. AORTIC VALVE Trileaflet aortic valve. No aortic valve stenosis or regurgitation. TRICUSPID VALVE The estimated pulmonary arterial pressure is 34 mmHg. PULMONARY VALVE The pulmonary valve is not well visualized. VESSELS The inferior vena cava is normal in size. PERICARDIUM No pericardial effusion. Heri Sheppard MD (Electronically Signed) Final Date:26 December 2016 10:48
--- NOTE | 2016-12-26 10:54 | RADRPT ---
EXAM DATE/TIME: 12/26/2016 10:11 [facility] COMPARISON: No previous studies available for comparison. INDICATIONS : Weakness. RADIATION DOSE: 37.10 CTDIvol (mGy) MEDICAL HISTORY : Hypertension. SURGICAL HISTORY : None. ENCOUNTER: Initial ACUITY: 1 day PAIN SCALE: 0/10 LOCATION: Cranial TECHNIQUE: Multiple contiguous axial images were obtained of the head. Using automated exposure control and adj ustment of the mA and/or kV according to patient size, radiation dose was kept as low as reasonably a chievable to obtain optimal diagnostic quality images. DICOM format image data is available electro nically for review and comparison. FINDINGS: Non-contrast head CT demonstrates there is definitely abnormal edema in the right temporal lobe compared to the left. It is primarily vasogenic edema. I don't definitively see an un derlying mass or abscess. Either contrasted MR or CT scan is recommended. I would proceed to an MRI since the pat ient has already had a CT scan with contrast on December,. There is mass effect due to the edema. The third ventricle is slightly shifted from right to left by 1 to 2 mm. No additional lesions are identified. Globes are of normal shape. Sinuses are clear. Bone windows are unremarkable. CONCLUSION: Abnormal edema in the right temporal lobe mostly vasogenic pattern. Brain MRI with contrast is recom mended to evaluate for a primary lesion. Blair Morocho MD on December 26, 2016 at 10:21 Board Certified Radiologist. This report was verified electronically.
[2016-12-26 11:34] VITALS: BP 145/79; PULSE 85; RESP 18; TEMP 99.4; O2SAT 99
--- NOTE | 2016-12-26 14:44 | EKG ---
Date Performed: 12/25/2016 Time Performed: 17:02:59 PTAGE: 61 years EKG: SINUS TACHYCARDIA MINIMAL ST DEPRESSION ABNORMAL RHYTHM ECG Compared to prior tracing no si gnificant change PREVIOUS TRACING : 12/16/2016 15.37 DOCTOR: Wiliam Navarro Interpretating Date/Time 12/26/2016 14:44:15
--- NOTE | 2016-12-26 14:48 | EKG ---
Date Performed: 12/26/2016 Time Performed: 05:59:26 PTAGE: 61 years EKG: Sinus rhythm AXIS BORDERLINE LEFTWARD OTHERWISE WITHIN NORMAL LIMITS Compared to prior tracing no significant lois nge PREVIOUS TRACING : 12/25/2016 23.41 DOCTOR: Wiliam Navarro Interpretating Date/Time 12/26/2016 14:47:25
--- NOTE | 2016-12-26 14:48 | EKG ---
Date Performed: 12/25/2016 Time Performed: 23:41:43 PTAGE: 61 years EKG: Sinus rhythm [place] borderline leftward Otherwise within normal limits Compared to prior tracing no significant lois nge PREVIOUS TRACING : 12/25/2016 17.02 DOCTOR: Wiliam Navarro Interpretating Date/Time 12/26/2016 14:46:36
[2016-12-26] MEDS ORDERED: GADODIAMIDE PF 287 MG/ML 20 ML VIAL (for RAD MRI) IVCONTRAST ONE (16:57)
--- NOTE | 2016-12-26 17:50 | RADRPT ---
EXAM DATE/TIME: 12/26/2016 16:44 [facility] COMPARISON: No previous studies available for comparison. INDICATIONS : Temporal lobe edema on CT scan. CONTRAST: 20 cc Omniscan (gadodiamide) IV MEDICAL HISTORY : Hypertension. SURGICAL HISTORY : Bilateral hip replacement. Arm. Shoulder. ENCOUNTER: Subsequent ACUITY: 1 day PAIN SCORE: 3/10 LOCATION: cranial TECHNIQUE: Multiplanar, multisequence MRI of the brain was performed both prior to and following the administrat ion of paramagnetic contrast. FINDINGS: Pre-and post contrast MRI imaging of the brain demonstrates edematous changes diffusely throughout th e right temporal lobe. There is very subtle abnormal signal throughout this area on the diffusion res tricted images. Most of this likely represents T2 shine through. There is moderate mass effect on the ventricular system with approximately 6 mm of right to left falcine shift. Post contrast imaging is provided. No enhancing mass is identified. The primary differential consideration for this would be a n evolving the vein of Rosa M infarct. A very low grade glioma could have this appearance as well but is felt less likely. The remainder the brain parenchyma demonstrates normal signal characteristics. The sulci and gyri are intact superiorly. The appearance of the posterior fossa is unremarkable. The visualized portion of sinus and orbit are intact. CONCLUSION: 1. There is a large area of nonspecific edema throughout the right temporal lobe with enlargement of the right temporal lobe. There is no underlying enhancing mass identified on the post contrast imagin g. There is only very minimal diffusion signal within this. The primary differential consideration wo uld be an evolving vein of Rosa M infarct. There is moderate mass effect on the right cerebral peduncl e. There is approximately 6 mm of right to left falcine shift. Please see above. Kaiden Singleton MD on December 26, 2016 at 17:40 Board Certified Radiologist. This report was verified electronically.
[2016-12-26 20:48] VITALS: BP 170/94; PULSE 77; RESP 18; TEMP 99.1; O2SAT 98
[2016-12-26] MEDS: RIVAROXABAN 15 MG TAB PO SCH (20:56)
[2016-12-26] MEDS: LORazepam 2 MG/ML VIAL IV PUSH PRN (22:00)
[2016-12-26 22:21] VITALS: PULSE 78
[2016-12-26 23:57] VITALS: PULSE 96
[2016-12-27] VITALS: BP 141/93; PULSE 92; RESP 20; TEMP 100.2; O2SAT 97
[2016-12-27 04:07] VITALS: BP 143/78; PULSE 80; RESP 18; TEMP 99.9; O2SAT 96
[2016-12-27] MEDS: LOSARTAN 50 MG TAB PO SCH (08:22)
[2016-12-27] MEDS: amLODIPine BESYLATE 5 MG TAB PO SCH (08:22)
[2016-12-27] MEDS: THIAMINE HCL 100 MG TAB PO SCH (08:22)
[2016-12-27] MEDS: SODIUM CHLORIDE 0.9% FLUSH 10 ML FLUSH IV FLUSH SCH ×2 (08:22→21:37)
[2016-12-27] MEDS: RIVAROXABAN 15 MG TAB PO SCH ×2 (08:22→21:36)
[2016-12-27] MEDS ORDERED: GADODIAMIDE PF 287 MG/ML 20 ML VIAL (for RAD MRI) IV PUSH ONE (09:20)
--- NOTE | 2016-12-27 10:36 | RADRPT ---
EXAM DATE/TIME: 12/27/2016 08:54 COMPARISON: MRI BRAIN W & W/O CONTRAST, December 26, 2016, 16:44. INDICATIONS : Mass vs Venous stroke. CONTRAST: 20 cc Omniscan (gadodiamide) IV MEDICAL HISTORY : Hypertension. SURGICAL HISTORY : Rotator cuff, right. Bilateral hip replacment. ENCOUNTER: Initial ACUITY: 1 day PAIN SCORE: 0/10 LOCATION: cranial FINDINGS: The dural venous sinuses are patent throughout. The major deep cerebral venous structures are patent and unremarkable. Major cortical surface veins are symmetric and patent. CONCLUSION: Normal examination. Jaskaran Lindo MD on December 27, 2016 at 10:26 Board Certified Radiologist. This report was verified electronically.
--- NOTE | 2016-12-27 11:14 | RADRPT ---
EXAM DATE/TIME: 12/27/2016 08:54 [facility] COMPARISON: MRI BRAIN W & W/O CONTRAST, December 26, 2016, 16:44. INDICATIONS : Mass vs Venous stroke. MEDICAL HISTORY : Hypertension. SURGICAL HISTORY : Rotator cuff, right. Bilateral hip replacement ENCOUNTER: Initial ACUITY: 1 day PAIN SCORE: 0/10 LOCATION: cranial TECHNIQUE: MR spectroscopy was performed. FINDINGS: CT scan reveals minimal edema with mass effect in the right temporal lobe extending from cortex throu gh white matter without significant enhancement or restricted diffusion. Venous structures are paten t. Normal arterial structures are seen coursing through this. There is no lactate signal to suggest infarct. There is minimal elevation of choline of abnormally a bnormal side compared to the normal side. This is nonspecific but choline can be is the tumor marker . CONCLUSION: Nonspecific spectroscopic dilation of the right temporal lobe. Given the overall appearance considerations remain around age low-grade glioma, ganglioma or bland in farct. Eventually differentiation between the 2 will become apparent on followup MRIs. Inflammatory process would be unusual ibasilar imaging characteristics. This location this would be consideration and can be excluded clinically. Florencio Singleton MD FACR on December 27, 2016 at 11:02 Board Certified Radiologist. This report was verified electronically.
[2016-12-27] MEDS ORDERED: levETIRAcetam 1000 MG INJ 100 ML IV ONE (11:30)
[2016-12-27 12:00] VITALS: BP 186/81; PULSE 87; RESP 20; TEMP 99.5; O2SAT 97
[2016-12-27] MEDS ORDERED: levETIRAcetam 500MG PREMIX INJ 100 ML IV SCH (12:00)
--- NOTE | 2016-12-27 13:25 | HHI.PR ---
Subjective Remarks Follow up PE, temporal lobe edema. Patient denies chest pain, dyspnea. No numbness/tingling/weakness of extremities. Per family at bedside, he has been more confused and his speech is abnormal. He has also been unsteady on his feet. He is tremulous. Objective Vitals Vital Signs Date Time Temp Pulse Resp B/P (MAP) Pulse Ox O2 Delivery O2 Flow Rate FiO2 12/27/16 04:07 99.9 80 18 143/78 (99) 96 12/27/16 00:00 100.2 92 20 141/93 (109) 97 12/26/16 23:57 96 12/26/16 22:21 78 12/26/16 20:48 99.1 77 18 170/94 (119) 98 Result Diagram: 12/25/16 1700 12/26/16 0359 Imaging Last Impressions Head CT 12/26/16 0000 Signed Impressions: Service Date/Time: December 10:11 - CONCLUSION: Abnormal edema in the right temporal lobe mostly vasogenic pattern. Brain MRI with contrast is recommended to evaluate for a primary lesion. Blair Morocho MD Brain MRI 12/26/16 0000 Signed Impressions: Service Date/Time: December 16:44 - CONCLUSION: 1. There is a large area of nonspecific edema throughout the right temporal lobe with enlargement of the right temporal lobe. There is no underlying enhancing mass identified on the post contrast imaging. There is only very minimal diffusion signal within this. The primary differential consideration would be an evolving vein of Rosa M infarct. There is moderate mass effect on the right cerebral peduncle. There is approximately 6 mm of right to left falcine shift. Please see above. Kaiden Singleton MD Chest X-Ray 12/25/16 1645 Signed Impressions: Service Date/Time: Sunday, December 25, 2016 17:10 - CONCLUSION: No acute disease. Florencio Singleton MD FACR Lower Extremity Ultrasound 12/25/16 0000 Signed Impressions: Service Date/Time: Sunday, December 25, 2016 19:47 - CONCLUSION: No DVT of either lower extremity. Jaskaran Armstrong MD Carotid Artery Ultrasound 12/25/16 0000 Signed Impressions: Service Date/Time: Sunday, December 25, 2016 21:36 - CONCLUSION: Moderate atherosclerotic plaque seen of both carotid bifurcations without hemodynamically significant narrowing. Jaskaran Armstrong MD CT Angiography 12/25/16 0000 Signed Impressions: Service Date/Time: Sunday, December 25, 2016 18:34 - CONCLUSION: 1. Small right lower lobe pulmonary emboli. 2. Clear lungs. 3. Coronary artery calcification. 4. Fatty liver. Jaskaran Armstrong MD Objective Remarks General: No acute distress. Tremulous. Speech is slightly abnormal. Heart: Regular rate and rhythm. No murmur. Lungs: Clear to auscultation bilaterally. No wheezes, rales, or rhonchi. Breathing is nonlabored. Abdomen: Soft, nontender, nondistended. Extremities: No lower extremity edema. Psych: Alert, mild confusion. Procedures None Urinary Catheter: No Vascular Central Line Catheter: No A/P Problem List: (1) Pulmonary emboli ICD Code: I26.99 - Other pulmonary embolism without acute cor pulmonale Status: Acute (2) Alcohol dependence ICD Code: F10.20 - Alcohol dependence, uncomplicated Status: Acute (3) Near syncope ICD Code: R55 - Syncope and collapse Status: Acute (4) Hypertension ICD Code: I10 - Essential (primary) hypertension Assessment and Plan 1. Pulmonary embolus: Patient had recent travel from [place]. CTA shows right lower lobe pulmonary embolus. No DVT noted on bilateral lower extremity ultrasound. Lovenox initiated in the ER. Will transition to Xarelto. 2. Generalized weakness, abnormal olfactory sensation: CT head showed right temporal lobe edema. Brain MRI showed edema of right temporal lobe with moderate mass effect. Neurology was consulted. MRV negative for thrombosis. MRI spectroscopy shows nonspecific dilation of the right temporal lobe. Continue Keppra for seizure prophylaxis. 3. Near syncope: Likely secondary to pulmonary emboli. 2-D echocardiogram is unremarkable. Carotid ultrasound shows moderate atherosclerotic plaque with no significant stenosis. 4. Alcohol abuse/dependence: [facility] protocol. Thiamine, folate. Withdrawal/ seizure precautions. Patient has been counseled. 5. Hypertension: Chronic. Continue home medications. 6. DVT prophylaxis: Lovenox. Problem Qualifiers (1) Pulmonary emboli: Qualified Codes: I26.99 - Other pulmonary embolism without acute cor pulmonale (2) Alcohol dependence: Qualified Codes: F10.29 - Alcohol dependence with unspecified alcohol-induced disorder Shawn Peng MD Dec 27, 2016 13:25
--- NOTE | 2016-12-27 15:18 | MB ---
cc: CRISTY GAMBOA M.D. DATE OF CONSULTATION: 12/26/2016 REASON FOR CONSULTATION The patient is a 61-year-old seen in neurological consultation in regards to an abnormal sense of smell. I just interviewed and examined the patient along with his significant other. They have been together for 25 years. HISTORY OF PRESENT ILLNESS He was admitted yesterday when he called 911 because of a very unusual smell at home that he could not determine what it was. Nobody else could smell it. He smelled this odor and still feels it is here in the hospital when he breathes deeply. His significant other was not home so she was not aware of any of these but evidently when she came in she did not smell anything wrong at all. The patient describes it as a chemical smell almost like a red tide smell. When he came in he was evaluated and found to have a pulmonary embolism and Lovenox was started. He had recent alcohol use when he came from [place] by plane and had some drinks in the airplane and also when he arrived home and this was apparently the day before yesterday. PAST SURGICAL HISTORY He has had recent surgery of the rotator cuff and biceps tendon on the left. PAST MEDICAL HISTORY History of hypertension on two medications and also gout on allopurinol. The medications were Norvasc, losartan and tramadol p.r.n. NEUROLOGICAL EXAMINATION The neurologic exam shows an alert and pleasant man. He interestingly seems to be looking towards his significant other for the answers of some relatively simple questions. He had to think a little bit more in order to answer simple questions. I questioned her and she admits that in the past few months he has had some memory decline but still remains functional and independent, driving and taking care of his affairs. He is a retired helper driver. His ocular movements and visual vasquez are full. I thought there was a hint of some left facial flattening. There is no arm drift. I did not ambulate him but he was sitting and appeared to be strong in all four limbs on the bedside exam. Reflexes 1+ without any obvious asymmetry and plantar responses were flexor. LABORATORY Laboratory was reviewed. Chemistries noted. Sodium today 131, potassium normal, BUN and creatinine normal, glucose 121. CBC yesterday with white count 7.5, hemoglobin 15.1, platelets 180. IMAGING MRI brain reviewed and interestingly the study DICTATION INTERRUPTED MD CHETAN Parsons/JANET /6:08 PM /3:10 PM
[2016-12-27 16:28] VITALS: BP 149/78; PULSE 92; RESP 20; TEMP 98.1; O2SAT 95
[2016-12-27 16:49] LABS: HEMATOCRIT 44.1 % (39.0-51.0); MEAN CELL VOLUME 98.6 FL (80.0-100.0); MEAN CORPUSCULAR HEMOGLOBIN 34.6 PG (27.0-34.0); MEAN CORPUSCULAR HGB CONC 35.1 % (32.0-36.0); PLATELET COUNT 227 TH/MM3 (150-450); RED BLOOD COUNT 4.47 MIL/MM3 (4.50-5.90); RED CELL DISTRIBUTION WIDTH 13.1 % (11.6-17.2)
[2016-12-27 17:21] LABS: HEMO FLAGS AUTO DIFF
--- NOTE | 2016-12-27 17:32 | HHI.PR ---
Review/Management Daily Summary 12/27 feels fine imagimg results and picture reviewed keppra given earlier after EEG done eeg seen, right hemisphere slowing and epileptiform but not ictal no smell anymore family at bedside mildly anxious and forgetfull but pleasant right temporal lobe edema, suspect neoplasm will consult neurosurgery for possible biopsy probably steroids after seen by neurosurgery dr Saleem cover weekend Subjective Subjective Comments No acute events reported No headache No chest pain No dyspnea Active Medications Current Medications Medications (Trade) Dose Ordered Sig/Sabra Route Start Time Stop Time Status Last Admin (Romazicon Inj) 0.2 mg Q1M PRN IV PUSH 12/25/16 19:45 (Ativan) 1 mg Q4H PRN PO 12/25/16 19:45 (Ativan Inj) 1 mg Q4H PRN IV PUSH 12/25/16 19:45 12/26/16 22:00 (Ativan) 2 mg Q2H PRN PO 12/25/16 19:45 (Ativan Inj) 2 mg Q2H PRN IV PUSH 12/25/16 19:45 12/26/16 02:28 (Ativan Inj) 2 mg Q1H PRN IV PUSH 12/25/16 19:45 (Ativan Inj) 2 mg Q15M PRN IV PUSH 12/25/16 19:45 (NS Flush) 2 ml UNSCH PRN IV FLUSH 12/25/16 21:15 (NS Flush) 2 ml BID IV FLUSH 12/26/16 09:00 12/27/16 08:22 (Narcan Inj) 0.4 mg UNSCH PRN IV PUSH 12/25/16 21:15 (Ativan Inj) 1 mg Q2H PRN IV PUSH 12/25/16 21:30 (Vitamin B1) 100 mg DAILY PO 12/26/16 09:00 12/27/16 08:22 (Cozaar) 100 mg DAILY PO 12/26/16 09:00 12/27/16 08:22 (Ultracet 37.5-325 Mg) 1 tab Q6H PRN PO 12/26/16 05:15 (Norvasc) 5 mg DAILY PO 12/26/16 09:00 12/27/16 08:22 (Zofran Inj) 4 mg Q6HR PRN IV PUSH 12/26/16 10:15 12/26/16 11:44 (Xarelto) 15 mg Q12H PO 12/26/16 20:00 12/27/16 08:22 (Keppra) 1,000 mg BID PO 12/27/16 21:00 Allergies Allergies Coded Allergies No Known Allergies (Unverified12/25/16) Exam I&O / VS Vital Signs Date Time Temp Pulse Resp B/P (MAP) Pulse Ox O2 Delivery O2 Flow Rate FiO2 12/27/16 16:28 98.1 92 20 149/78 (101) 95 12/27/16 12:00 99.5 87 20 186/81 (116) 97 12/27/16 04:07 99.9 80 18 143/78 (99) 96 12/27/16 00:00 100.2 92 20 141/93 (109) 97 12/26/16 23:57 96 12/26/16 22:21 78 12/26/16 20:48 99.1 77 18 170/94 (119) 98 Objective Radiology Results Last 48 hours Impressions Spectroscopy MRI 12/27/16 0000 Signed Impressions: Service Date/Time: Tuesday, December 27, 2016 08:54 - CONCLUSION: Nonspecific spectroscopic dilation of the right temporal lobe. Given the overall appearance considerations remain around age low-grade glioma, ganglioma or bland infarct. Eventually differentiation between the 2 will become apparent on followup MRIs. Inflammatory process would be unusual ibasilar imaging characteristics. This location this would be consideration and can be excluded clinically. Florencio Singleton MD FACR Head/Brain Mag Res Venography 12/27/16 0000 Signed Impressions: Service Date/Time: Tuesday, December 27, 2016 08:54 - CONCLUSION: Normal examination. Jaskaran Lindo MD Head CT 12/26/16 0000 Signed Impressions: Service Date/Time: December 10:11 - CONCLUSION: Abnormal edema in the right temporal lobe mostly vasogenic pattern. Brain MRI with contrast is recommended to evaluate for a primary lesion. Blair Morocho MD Brain MRI 12/26/16 0000 Signed Impressions: Service Date/Time: December 16:44 - CONCLUSION: 1. There is a large area of nonspecific edema throughout the right temporal lobe with enlargement of the right temporal lobe. There is no underlying enhancing mass identified on the post contrast imaging. There is only very minimal diffusion signal within this. The primary differential consideration would be an evolving vein of Rosa M infarct. There is moderate mass effect on the right cerebral peduncle. There is approximately 6 mm of right to left falcine shift. Please see above. Kaiden Singleton MD Micro and Labs Laboratory Tests Test 12/27/16 15:56 White Blood Count 7.0 Red Blood Count 4.47 Hemoglobin 15.5 Hematocrit 44.1 Mean Corpuscular Volume 98.6 Mean Corpuscular Hemoglobin 34.6 Mean Corpuscular Hemoglobin Concent 35.1 Red Cell Distribution Width 13.1 Platelet Count 227 Mean Platelet Volume 8.2 CBC Comment AUTO DIFF Abhijit Espinosa MD Dec 27, 2016 17:32
--- NOTE | 2016-12-27 17:34 | MG ---
cc: LISA BOYKIN Lab No: [id number] Date: 12/27/16 Age: 61 Sex: M Race: TECHNIQUE 17 channel EEG. DESCRIPTION The background rhythm reveals mild slowing in the theta range, roughly 6-7 Hz. No lateralizing features identified. There are no epileptiform features seen. Occasional muscle artifact is identified. Hyperventilation does not yield a driving response. INTERPRETATION Abnormal study consistent with a mild encephalopathy. MD CONSUELO Ruiz/DEE /3:23 PM /5:30 PM
[2016-12-27 19:03] LABS: EOSINOPHILS 2 % (0-4); NEUTROPHIL # MANUAL DIFF 4.1 TH/MM3 (1.8-7.7); PLATELET ESTIMATE SMEAR NORMAL (NORMAL); PLATELET MORPHOLOGY NORMAL (NORMAL); POLYS (SEG NEUTROPHILS) 59 % (16-70); SCAN/DIFF FINAL DIFF MANUAL; WBC DIFF SAMPLE 100
[2016-12-27 20:00] VITALS: BP 170/100; PULSE 93; RESP 18; TEMP 97.3; O2SAT 96
[2016-12-27] MEDS: levETIRAcetam 500 MG TAB PO SCH (21:36)
[2016-12-28] VITALS: BP 138/94; PULSE 84; RESP 18; TEMP 99.1; O2SAT 95
[2016-12-28 04:00] VITALS: BP 165/89; PULSE 81; RESP 18; TEMP 98.6; O2SAT 96
[2016-12-28 08:05] VITALS: BP 178/96; PULSE 83; RESP 20; TEMP 98.1; O2SAT 99
[2016-12-28] MEDS: amLODIPine BESYLATE 5 MG TAB PO SCH (09:00)
[2016-12-28] MEDS: SODIUM CHLORIDE 0.9% FLUSH 10 ML FLUSH IV FLUSH SCH ×2 (09:00→22:28)
[2016-12-28] MEDS: LOSARTAN 50 MG TAB PO SCH (09:00)
[2016-12-28] MEDS: THIAMINE HCL 100 MG TAB PO SCH (10:03)
[2016-12-28] MEDS: levETIRAcetam 500 MG TAB PO SCH ×2 (10:04→22:28)
[2016-12-28] MEDS: RIVAROXABAN 15 MG TAB PO SCH (10:05)
[2016-12-28 11:34] LABS: AUTOMATED NEUTROPHIL # 5.4 TH/MM3 (1.8-7.7); BASOPHIL % 0.5 % (0.0-2.0); EOSINOPHIL % 0.6 % (0.0-4.0); HEMATOCRIT 49.6 % (39.0-51.0); HEMO FLAGS DIFF FINAL; LYMPH % 13.4 % (9.0-44.0); LYMPHOCYTE # 1.1 TH/MM3 (1.0-4.8); MEAN CELL VOLUME 100.2 FL (80.0-100.0); MEAN CORPUSCULAR HEMOGLOBIN 35.1 PG (27.0-34.0); NEUT % 67.5 % (16.0-70.0); PLATELET COUNT 200 TH/MM3 (150-450); RED BLOOD COUNT 4.95 MIL/MM3 (4.50-5.90); RED CELL DISTRIBUTION WIDTH 13.2 % (11.6-17.2)
[2016-12-28 11:50] VITALS: BP 157/93; PULSE 81; RESP 20; TEMP 98.9; O2SAT 98
[2016-12-28 12:03] LABS: BICARBONATE 25.6 MEQ/L (21.0-32.0); POTASSIUM 3.7 MEQ/L (3.5-5.1)
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
--- NOTE | 2016-12-28 15:18 | HHI.PR ---
Subjective Remarks Follow-up on pulmonary embolism and brain neoplasm. Nursing denies any acute events since admission but they do report in a critical lab of the drop in sodium to 124. Patient himself says that he feels somewhat drowsy and he thinks is a side effect of the Keppra. Daughter is present at the bedside and is inquiring about transferring the patient to [place] for further neurosurgical evaluation if warranted. Patient denies any pleuritic chest pain or difficult breathing Objective Vital Signs Date Time Temp Pulse Resp B/P (MAP) Pulse Ox O2 Delivery O2 Flow Rate FiO2 12/28/16 11:50 98.9 81 20 157/93 (114) 98 12/28/16 08:05 98.1 83 20 178/96 (123) 99 12/28/16 04:00 98.6 81 18 165/89 (114) 96 12/28/16 00:00 99.1 84 18 138/94 (109) 95 12/28/16 00:00 99.1 84 18 138/94 (109) 95 12/27/16 20:00 97.3 93 18 170/100 (123) 96 12/27/16 16:28 98.1 92 20 149/78 (101) 95 I/O 12/27/16 12/27/16 12/27/16 12/28/16 12/28/16 12/28/16 07:00 15:00 23:00 07:00 15:00 23:00 # Voids 2 Result Diagram: 12/28/16 0945 12/28/16 0945 Objective Remarks No acute distress Clear to auscultation bilaterally in both lung vasquez Heart rate regular rate and rhythm, no murmurs No lower extremity edema Neurologically: Alert and oriented 3, no facial droop or slurred speech, tongue in midline A/P Assessment and Plan Assessment and Plan 1. Pulmonary embolus: switching over back to lovenox (see below) 2. Problem of acute hyponatremia - clinically I suspect this is due to the patient's suspected neoplasm, but we'll do a quick workup to rule out other etiologies 2. Generalized weakness, abnormal olfactory sensation: Secondary to brain edema secondary to suspected neoplasm. CT head showed right temporal lobe edema. Brain MRI showed edema of right temporal lobe with moderate mass effect. MRV negative for thrombosis. MRI spectroscopy shows nonspecific dilation of the right temporal lobe. Continue Keppra for seizure prophylaxis. 3. Suspected neoplasm - neurosurgery involved, recommend brain biopsy, have explained risks and benefits of withholding anticoagulation. Daughter desiring to have this performed in [place] 4. Near syncope: 2/2 brain mass and/or pulmonary emboli. 2-D echocardiogram is unremarkable. Carotid ultrasound shows moderate atherosclerotic plaque with no significant stenosis. 5. Alcohol abuse/dependence: [facility] protocol. Thiamine, folate. Withdrawal/ seizure precautions. Patient has been counseled. 6. Hypertension: Chronic. Continue home medications, including amlodipine back to home dose. 7. DVT prophylaxis: Lovenox. Discussed case with neurosurgeon from [facility] (they were unable to get in touch with our neurosurgeon), they are willing to accept the patient, per his advice will stop rivoraxaban since a brain biopsy is anticipated and will switch over to Lovenox twice a day dosing for pulmonary embolism treatment. Related that he has hyponatremia newly found likely secondary to his brain lesion. Wily Sawyer MD Dec 28, 2016 15:18
[2016-12-28 16:23] VITALS: BP 157/86; PULSE 86; RESP 20; TEMP 98.4; O2SAT 98
[2016-12-28] MEDS ORDERED: LORazepam 0.5 MG TAB PO PRN (18:30)
--- NOTE | 2016-12-28 19:55 | HHI.PR ---
Subjective Remarks 99.1 Objective Vital Signs Date Time Temp Pulse Resp B/P (MAP) Pulse Ox O2 Delivery O2 Flow Rate FiO2 12/28/16 16:23 98.4 86 20 157/86 (109) 98 12/28/16 11:50 98.9 81 20 157/93 (114) 98 12/28/16 08:05 98.1 83 20 178/96 (123) 99 12/28/16 04:00 98.6 81 18 165/89 (114) 96 12/28/16 00:00 99.1 84 18 138/94 (109) 95 12/28/16 00:00 99.1 84 18 138/94 (109) 95 12/27/16 20:00 97.3 93 18 170/100 (123) 96 I/O 12/27/16 12/27/16 12/27/16 12/28/16 12/28/16 12/28/16 07:00 15:00 23:00 07:00 15:00 23:00 Intake Total 960 ml Balance 960 ml Intake Oral 960 ml # Voids 2 3 Result Diagram: 12/28/16 0945 12/28/16 0945 Objective Remarks awake alert nad moves all well not weak left face sym nl gait Assessment and Plan Assessment and Plan imp alittle tired eeg neg mri positive i think unlikley cva hsv encephalitis also unlikely as not particularly ill but will start acyclovir glioblastoma possible i dw daughter start acyclovir they are planning to transfer to [facility] for eval clinically looks good hx pe and etoh do gram solumedrol have id have a look at him Akash Saleem MD Dec 28, 2016 19:55
[2016-12-28 20:00] VITALS: BP 150/85; PULSE 96; RESP 20; TEMP 98.3; O2SAT 98
[2016-12-28] MEDS ORDERED: methylPREDNISolone SO SUCC INJ 1,000 MG in DEXTROSE 5% IN WATER 100ML INJ 100 ML IV ONE ×2 (21:00)
[2016-12-28 22:13] LABS: POTASSIUM 3.2 MEQ/L (3.5-5.1)
[2016-12-28] MEDS: SODIUM CHLORIDE 0.9% IV SCH (22:29)
[2016-12-28] MEDS: ACYCLOVIR IV SCH (22:29)
[2016-12-28] MEDS: ENOXAPARIN SODIUM 100 MG/ML SYRINGE SQ SCH (22:29)
[2016-12-28] MEDS: SODIUM CHLOR 0.9% 1000 ML INJ 1,000 ML IV SCH (22:30)
[2016-12-28] MEDS: PANTOPRAZOLE SOD 40 MG DELAYED RELEASE TAB PO SCH (22:34)
[2016-12-29] VITALS: BP 127/66; PULSE 83; RESP 20; TEMP 97.3; O2SAT 97
[2016-12-29 04:00] VITALS: BP 113/76; PULSE 83; RESP 20; TEMP 98.1; O2SAT 94
[2016-12-29] MEDS: SODIUM CHLORIDE 0.9% IV SCH (05:48)
[2016-12-29] MEDS: ACYCLOVIR IV SCH (05:48)
[2016-12-29 08:22] VITALS: BP 133/71; PULSE 99; RESP 20; TEMP 98.2; O2SAT 98
--- NOTE | 2016-12-29 08:36 | HHI.PR ---
Subjective Remarks afeb Objective Vital Signs Date Time Temp Pulse Resp B/P (MAP) Pulse Ox O2 Delivery O2 Flow Rate FiO2 12/29/16 08:22 98.2 99 20 133/71 (91) 98 12/29/16 04:00 98.1 83 20 113/76 (88) 94 12/29/16 00:00 97.3 83 20 127/66 (86) 97 12/28/16 20:00 98.3 96 20 150/85 (106) 98 12/28/16 16:23 98.4 86 20 157/86 (109) 98 12/28/16 11:50 98.9 81 20 157/93 (114) 98 I/O 12/28/16 12/28/16 12/28/16 12/29/16 12/29/16 12/29/16 07:00 15:00 23:00 07:00 15:00 23:00 Intake Total 1400 ml 550 ml Balance 1400 ml 550 ml Intake Oral 1300 ml 400 ml IV Total 100 ml 150 ml # Voids 2 5 1 Result Diagram: 12/28/1645 12/28/162116 Objective Remarks awake alert nad moves all well not weak left face sym Assessment and Plan Assessment and Plan imp alittle tired still na 128 eeg neg mri positive i think unlikley cva hsv encephalitis also unlikely as not particularly ill but will start acyclovir glioblastoma possible i dw daughter start acyclovir they are planning to transfer to [facility] for eval clinically looks good hx pe and etoh do gram solumedrol have id have a look at him check esr \ stable overnoc dr guzmán in am if still lightheaded tomorrow consider dc keppra? watch renal fxt on acyclovir plz med team Akash Saleem MD Dec 29, 2016 08:36
[2016-12-29] MEDS: SODIUM CHLOR 0.9% 1000 ML INJ 1,000 ML IV SCH (09:09)
[2016-12-29] MEDS: SODIUM CHLORIDE 0.9% FLUSH 10 ML FLUSH IV FLUSH SCH (09:17)
[2016-12-29] MEDS: PANTOPRAZOLE SOD 40 MG DELAYED RELEASE TAB PO SCH (09:17)
[2016-12-29] MEDS: levETIRAcetam 500 MG TAB PO SCH (09:17)
[2016-12-29] MEDS: LOSARTAN 50 MG TAB PO SCH (09:17)
[2016-12-29] MEDS: THIAMINE HCL 100 MG TAB PO SCH (09:17)
[2016-12-29] MEDS: ENOXAPARIN SODIUM 100 MG/ML SYRINGE SQ SCH (09:18)
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
[2016-12-29] MEDS ORDERED: methylPREDNISolone SO SUCC INJ 1,000 MG in DEXTROSE 5% IN WATER 100ML INJ 100 ML IV ONE ×2 (10:00)
[2016-12-29 11:51] LABS: BICARBONATE 29.7 MEQ/L (21.0-32.0)
== END 2016-12-29 11:03 | disposition short-term general hospital (02) | DRG 175 ==
LOC: NEPD 16:17 → NEDA 20:03 → NEPGCP 22:50 → N05A 12-27 14:25
PROVIDERS: ADMIT Family Medicine; ATTEND Hospitalist
DX: I26.99 Other pulmonary embolism without acute cor pulmonale (principal); G93.6 Cerebral edema; E22.2 Syndrome of inappropriate secretion of antidiuretic hormone; D49.6 Neoplasm of unspecified behavior of brain; I10 Essential (primary) hypertension; R09.02 Hypoxemia; R55 Syncope and collapse; F10.20 Alcohol dependence, uncomplicated; R53.1 Weakness; E78.5 Hyperlipidemia, unspecified; M10.9 Gout, unspecified
CPT/HCPCS: 70450; 70546; 70553; 71010; 71275; 76390; 80048; 80307; 81001; 82550; 82552; 83735; 83930; 83935; 84300; 84484; 85007; 85025; 85027; 85610; 85652; 85730; 93005; 93306; 93880; 93970; 95819; 96361; 96372; 96374; 96375; A9579; J0133; J0780; J1200; J1650; J1953; J2060; J2405; J2930; J7030; Q9967